=== PATIENT | female | born 1975 | race Caucasian/White ===

== ENCOUNTER → 2016-09-05 | Outpatient (CLI) | payer OTHER | LOC: SLEEPLAB 21:07 | DX: G47.33 Obstructive sleep apnea (adult) (pediatric) (principal) ==

== ENCOUNTER → 2019-03-17 | Outpatient (CLI) | payer BC, OTHER | LOC: RAD 14:06 | DX: R06.00 Dyspnea, unspecified (principal); R07.9 Chest pain, unspecified; J45.20 Mild intermittent asthma, uncomplicated ==

== ENCOUNTER → 2019-04-20 | Outpatient (CLI) | payer BC, OTHER | LOC: SJCVCIMAG 13:31 | DX: R07.9 Chest pain, unspecified (principal) ==